=== PATIENT | female | born 1995 | race Caucasian/White ===

== ENCOUNTER 2023-03-12 11:15 | Emergency (ER) | payer OTHER ==
--- NOTE | 2023-03-12 11:20 | ERPHSYRPT ---
- History of Present Illness Time Seen by Provider: 03/12/23 11:20 Source: patient Exam Limitations: no limitations Physician History: This is a 27-year-old white female patient who took her dogs out side during the rain last evening she slipped and fell down the steps and landed on her right hip. This morning she is able to ambulate but has pain in the right hip and right groin area. She has no abdominal pain. She did not hit her head. She has no headache. She has no neck pain, she has no chest pain, she has no back pain. Patient is on Depo-Provera. Timing/Duration: yesterday Occured at: home Context: fall Quality: aching Hip Pain Location: hip (R), pelvis Severity of Pain-Max: mild (Moderate) Severity of Pain-Current: mild (To moderate) Modifying Factors: Improves With: movement Symptoms prior to fall: none Associated Symptoms: denies symptoms Allergies/Adverse Reactions: No Known Drug Allergies Allergy (Verified 03/12/23 11:29) Home Medications: ALPRAZolam [Alprazolam] 0.5 mg PO BID 03/12/23 [History] Fexofenadine HCl [Lina Allergy] 180 mg PO DAILY 03/12/23 [History] Medroxyprogesterone Acetate 1 ml IM UD 03/12/23 [History] Trazodone HCl 300 mg PO HS 03/12/23 [History] Vilazodone HCl 40 mg PO DAILY 03/12/23 [History] Hx Tetanus, Diphtheria Vaccination/Date Given: No Hx Influenza Vaccination/Date Given: No Hx Pneumococcal Vaccination/Date Given: No Travel Risk - International Travel Have you traveled outside of the country in past 3 weeks: No - Coronavirus Screening Are you exhibiting any of the following symptoms?: No Close contact with a COVID-19 positive Pt in past 14-21 Days: No - Review of Systems Constitutional: No Symptoms Eyes: No Symptoms Ears, Nose, & Throat: No Symptoms Respiratory: No Symptoms Cardiac: No Symptoms Abdominal/Gastrointestinal: No Symptoms Genitourinary Symptoms: No Symptoms Musculoskeletal: Fall, Injury Skin: No Symptoms Neurological: No Symptoms Psychological: No Symptoms Endocrine: No Symptoms Hematologic/Lymphatic: No Symptoms Immunological/Allergic: No Symptoms All Other Systems: Reviewed and Negative - Past Medical History Pertinent Past Medical History: Yes Neurological History: No Pertinent History ENT History: No Pertinent History Cardiac History: No Pertinent History Respiratory History: No Pertinent History Endocrine Medical History: No Pertinent History Musculoskeletal History: No Pertinent History GI Medical History: No Pertinent History History: No Pertinent History Psycho-Social History: No Pertinent History Female Reproductive Disorders: Endometriosis - Past Surgical History Past Surgical History: Yes Neuro Surgical History: No Pertinent History Cardiac: No Pertinent History Respiratory: No Pertinent History Gastrointestinal: No Pertinent History Genitourinary: No Pertinent History Musculoskeletal: No Pertinent History Female Surgical History: No Pertinent History Other Surgical History: tumor removed from overy - Social History Smoking Status: Never smoker Exposure to second hand smoke: No Drug Use: none Patient Lives Alone: No - Nursing Vital Signs Nursing Vital Signs: Initial Vital Signs Temperature 98.0 F 03/12/23 11:21 Pulse Rate 82 03/12/23 11:21 Blood Pressure 133/76 03/12/23 11:21 O2 Sat by Pulse Oximetry 99 03/12/23 11:21 Pain Scale Pain Intensity 9 - Physical Exam General Appearance: no apparent distress, alert, anxiety Eye Exam: PERRL/EOMI, eyes nml inspection Ears, Nose, Throat Exam: normal ENT inspection, moist mucous membranes Neck Exam: normal inspection, non-tender, supple, full range of motion Respiratory Exam: airway intact, No chest tenderness, No respiratory distress Gastrointestinal Exam: No tenderness Pelvic Exam: not done Rectal Exam: not done Back Exam: normal inspection, normal range of motion, No CVA tenderness, No vertebral tenderness Extremity Exam: normal inspection, normal range of motion, pelvis stable Neurologic Exam: alert, oriented x 3, cooperative, dog boarder II-XII nml as tested, normal mood/affect, nml cerebellar function, nml station & gait, sensation nml Skin Exam: normal color, warm, dry Lymphatic Exam: No adenopathy SpO2 Interpretation: normal O2 Delivery: Room Air - Course Nursing assessment & vital signs reviewed: Yes Ordered Tests: Active Orders 24 hr Category Date Time Status HIP UNI (2V) INCL PEL IF DONE Stat Exams 03/12/23 11:35 Completed - Progress Progress: unchanged Progress Note: 03/12/23 12:48 AP pelvis and right hip x-ray shows no acute fracture or dislocation. This x- ray was interpreted by the radiologist and the impression was reviewed by me. This patient medical issue is 1 of low complexity. The level of complexity and the workup performed is based on review of the patient's past medical history, review of the patient's medication list, review of the patient's drug allergy list, history present illness and physical finds on examination. This patient is undergoing AP pelvis and right hip x-ray. I reviewed the results of this radiographic study. Patient has no acute, emergent medical issue. We will discharge patient home. Medical Desision Making - Diagnostic Testing Diagnostic test were ordered, analyzed, and reviewed by me: Yes Radiological Interpretation: Reviewed by me, Teleradiologist Report - Risk of complications Minimal Risk: Minimal risk of morbidity - Departure Departure Disposition: Home Clinical Impression: Hip pain Condition: Stable Critical Care Time: No Referrals: LAURA CASTELLANOS NP [Primary Care Provider] - Follow up/PCP as directed Additional Instructions: Ice pack to tender areas 3 times a day for the next 48 hours. May use Tylenol and ibuprofen for pain control. If pain persist beyond 48 hours, may follow-up in the [facility] orthopedic clinic Thursday through Thursday 8 AM to 10 AM. It is a walk-in clinic and you do not need to have an appointment.
[2023-03-12 11:33] VITALS: PULSE 82; TEMP 98
--- NOTE | 2023-03-12 12:29 | XRAY ---
Indication: Right hip pain following fall. Comparison: None AP pelvis and 2 view right hip demonstrates normal bones, articulation, and soft tissues.
[2023-03-12 12:55] VITALS: BP 117/61; O2SAT 97
== END 2023-03-12 12:58 | disposition home or self-care (01) ==
LOC: ED 11:15
DX: M25.551 Pain in right hip (principal); W10.9XXA Fall (on) (from) unspecified stairs and steps, initial encounter; R10.2 Pelvic and perineal pain; Z79.899 Other long term (current) drug therapy
CPT/HCPCS: 73502; 99282

== ENCOUNTER 2023-09-11 21:45 | Emergency (ER) | payer OTHER ==
--- NOTE | 2023-09-11 21:47 | ERPHSYRPT ---
- History of Present Illness Time Seen by Provider: 09/11/23 21:47 Source: patient Exam Limitations: no limitations Physician History: This is a 27-year-old white female patient who has no known drug allergies and has a history of endometriosis and anxiety disorder presents with left upper jaw pain with chewing. She feels as though she has a dental infection. Patient has had a root canal performed in the past but this is the more posterior tooth to the 1 that had the root canal. She has appointment to see her dentist on 09/15/2023. Timing/Duration: gradual onset, days (2) Severity: mild (Moderate) ENT Location: dental (Upper molar dental pain) Prearrival Treatment: no prearrival treatment Modifying Factors: Improves With: other (Worsens with chewing) Associated Symptoms: tooth pain Allergies/Adverse Reactions: No Known Drug Allergies Allergy (Verified 09/11/23 21:48) Home Medications: ALPRAZolam [Alprazolam] 0.5 mg PO BID 03/12/23 [History] Medroxyprogesterone Acetate 1 ml IM UD 03/12/23 [History] Desvenlafaxine Succinate [Desvenlafaxine Succinate ER] 50 mg PO DAILY 09/11/23 [History] Quetiapine Fumarate 100 mg [Seroquel 100 MG] 100 mg PO DAILY 09/11/23 [History] Hx Tetanus, Diphtheria Vaccination/Date Given: No Hx Influenza Vaccination/Date Given: No Hx Pneumococcal Vaccination/Date Given: No Travel Risk - International Travel Have you traveled outside of the country in past 3 weeks: No - Coronavirus Screening Are you exhibiting any of the following symptoms?: No Close contact with a COVID-19 positive Pt in past 14-21 Days: No - Vaccine Status Have you recieved a Covid-19 vaccination: Yes Medical Driver: Moderna - Vaccination Dates Date of 2cond Vaccination (if applicable): 2020 - Review of Systems Constitutional: No Symptoms Eyes: No Symptoms Ears, Nose, & Throat: Other (Upper molar dental pain) Respiratory: No Symptoms Cardiac: No Symptoms Abdominal/Gastrointestinal: No Symptoms Genitourinary Symptoms: No Symptoms Musculoskeletal: No Symptoms Skin: No Symptoms Neurological: No Symptoms Psychological: No Symptoms Endocrine: No Symptoms Hematologic/Lymphatic: No Symptoms Immunological/Allergic: No Symptoms All Other Systems: Reviewed and Negative - Past Medical History Pertinent Past Medical History: Yes Neurological History: Migraines, Other ENT History: No Pertinent History Cardiac History: No Pertinent History Respiratory History: No Pertinent History Endocrine Medical History: No Pertinent History Musculoskeletal History: Other GI Medical History: No Pertinent History History: No Pertinent History Psycho-Social History: No Pertinent History Female Reproductive Disorders: Endometriosis Other Medical History: DEPRESSION ANXIETY AND PTSD. SCOPE - 2010 FOR ENDOMETRIOSIS;. MULIPLTE VAGINAL US - Past Surgical History Past Surgical History: Yes Neuro Surgical History: No Pertinent History Cardiac: No Pertinent History Respiratory: No Pertinent History Gastrointestinal: No Pertinent History Genitourinary: No Pertinent History Musculoskeletal: No Pertinent History Female Surgical History: No Pertinent History Other Surgical History: tumor removed from overy - Social History Smoking Status: Never smoker Exposure to second hand smoke: No Drug Use: none Patient Lives Alone: No - Nursing Vital Signs Nursing Vital Signs: Initial Vital Signs Temperature 97.4 F 09/11/23 21:52 Pulse Rate 87 09/11/23 21:52 Respiratory Rate 14 09/11/23 21:52 Blood Pressure 144/89 09/11/23 21:52 O2 Sat by Pulse Oximetry 99 09/11/23 21:52 Pain Scale Pain Intensity 10 - Physical Exam General Appearance: no apparent distress, alert, anxiety Eye Exam: bilateral eye: normal inspection, PERRL, EOMI Ear Exam: bilateral ear: auricle normal Nasal Exam: normal inspection Throat Exam: normal, pharynx normal, dental tenderness (Left upper dental pain #16 molar), moist mucus membranes (No abscess present) Neck Exam: normal inspection, non-tender, supple, full range of motion, trachea midline Cardiovascular/Respiratory Exam: chest non-tender, no respiratory distress Abdominal Exam: non-tender Neurologic Exam: alert, oriented x 3, cooperative, 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 The level of complexity in the workup performed is based on review of the patient's past medical history, review the patient's medication list, review of patient drug allergy list, history of present illness and physical findings on examination. No radiographic or laboratory studies are necessary in this patient. The patient drove herself into the hospital urgency department. We will provide her with amoxicillin 500 mg 1 capsule now and two take-home Percocet 5/325 tablets. Counseled pt/family regarding: diagnosis, need for follow-up Medical Desision Making - Diagnostic Testing Diagnostic test were ordered, analyzed, and reviewed by me: No - Risk of complications The pt has a mod risk of morbidity or mortality based on: Need for prescription drug management - Departure Departure Disposition: Home Clinical Impression: Dental infection, Pain, dental Condition: Stable Critical Care Time: No Referrals: LAURA CASTELLANOS NP [Primary Care Provider] - Follow up/PCP as directed Additional Instructions: Take your antibiotics as prescribed. Take your Percocet medication as prescribed. Take ibuprofen 600 mg orally with food 3 times a day for the next 5 days. After you complete your Percocet medication, you can add 650 mg orally 4 times a day of Tylenol. Keep your dental appointment on 09/15/2023 for definitive care Prescriptions: Amoxicillin 500 mg Cap [Amoxil 500 mg] 500 mg PO TID #30 cap
[2023-09-11 22:03] VITALS: TEMP 97.4
[2023-09-11] MEDS ORDERED: PERCOCET TABLET 5/325MG ONE (22:08)
[2023-09-11] MEDS ORDERED: AMOXIL 500 MG ONE (22:08)
[2023-09-11] MEDS: AMOXIL 500 MG PO ONE (22:12)
[2023-09-11] MEDS: PERCOCET TABLET 5/325MG PO STA (22:13)
[2023-09-11 22:21] VITALS: BP 133/89
[2023-09-11 22:22] VITALS: PULSE 92; RESP 16; O2SAT 98
== END 2023-09-11 22:22 | disposition home or self-care (01) ==
LOC: ED 21:45
DX: K04.7 Periapical abscess without sinus (principal); K08.89 Other specified disorders of teeth and supporting structures; Z79.899 Other long term (current) drug therapy
CPT/HCPCS: 99282; A9270-GY

== ENCOUNTER 2023-09-12 17:23 | Emergency (ER) | payer OTHER ==
[2023-09-12] MEDS ORDERED: BENADRYL 12.5 MG/5 ML PO ONE (17:24)
[2023-09-12 17:42] VITALS: RESP 18; TEMP 97
[2023-09-12] MEDS: MORPHINE SULFATE 4 MG INJ IM ONE (17:54)
--- NOTE | 2023-09-12 17:59 | ERPHSYRPT ---
- History of Present Illness Time Seen by Provider: 09/12/23 17:26 Source: patient Exam Limitations: no limitations Patient Subjective Stated Complaint: Left sided jaw/mouth pain Triage Nursing Assessment: Patient ambulated back to ED and transferred self to bed. Patient A+O X3. Patient's skin pink, warm and dry. Patient complains of left sided jaw/mouth pain 8/10 for 3 days. Patient was seen in ED last night and prescribed atb. Patient states today the left side of her jaw is going numb and going down into left side of neck. Left side of face/jaw noted to be swollen. Physician History: 27 years old female was evaluated last night for dental pain, was given couple of Percocet and amoxicillin presented in the ER with complains of increasing pain left lower jaw despite having amoxicillin and couple Percocet along with ibuprofen. Patient also reports some swelling of left lower jaw and feeling of numbness in the left anterior jaw area. No facial droop or difficulty closing left eye or numbness in the cheek area. Patient also reports pain and feeling of tightness in the left upper neck but no difficulty movements of neck or difficulty speech. No difficulty swallowing or breathing. No fever or chills r eported. Patient reports currently 9/10 intensity pain in the left lower jaw. Allergies/Adverse Reactions: No Known Drug Allergies Allergy (Verified 09/12/23 17:35) Home Medications: ALPRAZolam [Alprazolam] 0.5 mg PO BID 03/12/23 [History] Medroxyprogesterone Acetate 1 ml IM UD 03/12/23 [History] Desvenlafaxine Succinate [Desvenlafaxine Succinate ER] 50 mg PO DAILY 09/11/23 [History] Quetiapine Fumarate 100 mg [Seroquel 100 MG] 100 mg PO DAILY 09/11/23 [History] Hx Tetanus, Diphtheria Vaccination/Date Given: No Hx Influenza Vaccination/Date Given: No Hx Pneumococcal Vaccination/Date Given: No Immunizations Up to Date: Yes Travel Risk - International Travel Have you traveled outside of the country in past 3 weeks: No - Coronavirus Screening Are you exhibiting any of the following symptoms?: No Close contact with a COVID-19 positive Pt in past 14-21 Days: No - Vaccine Status Have you recieved a Covid-19 vaccination: Yes Java Groovy Developer: Moderna - Vaccination Dates Date of 2cond Vaccination (if applicable): 2020 - Review of Systems Constitutional: No Symptoms Eyes: No Symptoms Ears, Nose, & Throat: Mouth Swelling, Loose Teeth Respiratory: No Symptoms Cardiac: No Symptoms Abdominal/Gastrointestinal: No Symptoms Genitourinary Symptoms: No Symptoms Musculoskeletal: No Symptoms Skin: No Symptoms Neurological: No Symptoms Endocrine: No Symptoms Hematologic/Lymphatic: No Symptoms Immunological/Allergic: No Symptoms - Past Medical History Pertinent Past Medical History: Yes Neurological History: Migraines, Other ENT History: No Pertinent History Cardiac History: No Pertinent History Respiratory History: No Pertinent History Endocrine Medical History: No Pertinent History Musculoskeletal History: Other GI Medical History: No Pertinent History History: No Pertinent History Psycho-Social History: No Pertinent History Female Reproductive Disorders: Endometriosis Other Medical History: DEPRESSION ANXIETY AND PTSD. SCOPE - 2010 FOR ENDOMETRIOSIS;. MULIPLTE VAGINAL US - Past Surgical History Past Surgical History: Yes Neuro Surgical History: No Pertinent History Cardiac: No Pertinent History Respiratory: No Pertinent History Gastrointestinal: No Pertinent History Genitourinary: No Pertinent History Musculoskeletal: No Pertinent History Female Surgical History: No Pertinent History Other Surgical History: tumor removed from overy - Social History Smoking Status: Never smoker Exposure to second hand smoke: No Drug Use: none Patient Lives Alone: No - Female History Hx Now: No - Nursing Vital Signs Nursing Vital Signs: Initial Vital Signs Temperature 97.0 F 09/12/23 17:36 Pulse Rate 75 09/12/23 17:36 Respiratory Rate 18 09/12/23 17:36 Blood Pressure 161/92 09/12/23 17:36 O2 Sat by Pulse Oximetry 99 09/12/23 17:36 Pain Scale Pain Intensity 4 - Physical Exam General Appearance: no apparent distress, alert Eye Exam: bilateral eye: normal inspection, PERRL, EOMI Ear Exam: bilateral ear: auricle normal, canal normal, TM normal Nasal Exam: normal inspection Throat Exam: normal, pharynx normal, dental tenderness (Left lower premolar and molar with minimal left lower gingival swelling and tenderness.) Neck Exam: normal inspection, non-tender, supple, full range of motion Cardiovascular/Respiratory Exam: normal breath sounds, regular rate/rhythm Neurologic Exam: alert, oriented x 3, cooperative, operations support analyst II-XII nml as tested, sensation nml, No motor deficits Skin Exam: normal color SpO2 Interpretation: normal SpO2: 99 O2 Delivery: Room Air Ordered Tests: Medication Summary Generic Name Dose Route Start Last Admin Trade Name Norma PRN Reason Stop Dose Admin Lidocaine HCl 10 ml 09/12/23 18:44 09/12/23 18:47 Lidocaine Hcl Viscous 1 Ml MM 10/12/23 18:43 10 ml PRN PRN Administration MILD PAIN Discontinued Medications Generic Name Dose Route Start Last Admin Trade Name Norma PRN Reason Stop Dose Admin Hydrocodone Bitart/Acetaminophen 2 tab 09/12/23 19:30 Hydrocodone/Apap 5/325 1 Tab Tablet PO 09/12/23 19:31 SENT HOME W/ PATIENT ONE Al Hydrox/Mg Hydrox/Simethicone Confirm 09/12/23 18:28 Mag Hydrox/Al Hydrox/Simeth 30 Ml Udcup Administered 09/12/23 18:29 Dose 30 ml .ROUTE .STK-MED ONE Al Hydrox/Mg Hydrox/Simethicone 20 ml 09/12/23 18:44 09/12/23 18:47 Mag Hydrox/Al Hydrox/Simeth 30 Ml Udcup PO 09/12/23 18:45 20 ml STAT ONE Administration Diphenhydramine HCl Confirm 09/12/23 18:27 Diphenhydramine Hcl 12.5 Mg/5 Ml Oral Solution Administered 09/12/23 18:28 Dose 7.5 mg .ROUTE .STK-MED ONE Diphenhydramine HCl 25 mg 09/12/23 18:44 09/12/23 18:46 Diphenhydramine Hcl 12.5 Mg/5 Ml Oral Solution PO 09/12/23 18:45 25 mg STAT ONE Administration Ketorolac Tromethamine 30 mg 09/12/23 17:55 09/12/23 18:34 Ketorolac Tromethamine 30 Mg/Ml Inj IM 09/12/23 17:56 30 mg STAT ONE Administration Ketorolac Tromethamine Confirm 09/12/23 18:28 Ketorolac Tromethamine 30 Mg/Ml Inj Administered 09/12/23 18:29 Dose 30 mg .ROUTE .STK-MED ONE Lidocaine HCl Confirm 09/12/23 18:28 Lidocaine Hcl 2% Viscous 15 Ml Udcup Administered 09/12/23 18:29 Dose 15 ml .ROUTE .STK-MED ONE Morphine Sulfate 4 mg 09/12/23 17:47 09/12/23 17:54 Morphine Sulfate 4 Mg/Ml Injection IM 09/12/23 17:48 Not Given STAT ONE - Progress Progress: improved, pain not gone completely Progress Note: 09/12/23 19:28 27 years old is evaluated for dental pain and left lower jaw swelling. Patient is given Toradol for and dental ball for symptomatic relief, on reevaluation she is feeling better. No obvious dental abscess. Recommended continue with amoxicillin. Outpatient follow-up with dentist as scheduled. Given 2 pills of Flynn to go home. Discussed signs symptoms of worsening needing return to ER which she seems understanding. Stable for discharge . Counseled pt/family regarding: diagnosis, need for follow-up Medical Desision Making - Risk of complications The pt has a mod risk of morbidity or mortality based on: Need for prescription drug management - Departure Departure Disposition: Home Clinical Impression: Pain, dental Condition: Stable Critical Care Time: No Referrals: LAURA CASTELLANOS, BUILDING OPERATOR [Primary Care Provider] - Follow up with PCP 2 days Instructions: Dental Pain (DC) Additional Instructions: Use dental balls. Tylenol/ibuprofen as needed for pain. Follow-up with your dentist for reevaluation as scheduled early next week. Return to ER for intractable pain, swelling, difficulty movements of jaw, fever chills etc.
[2023-09-12] MEDS ORDERED: BENADRYL 12.5 MG/5 ML ONE (18:27)
[2023-09-12] MEDS ORDERED: TORAdol 30 mg Injection ONE (18:28)
[2023-09-12] MEDS ORDERED: MAALOX ES 30 ML UNIT DOSE ONE (18:28)
[2023-09-12] MEDS ORDERED: XYLOCAINE VISCOUS 2% 15 ML CUP ONE (18:28)
[2023-09-12] MEDS: TORAdol 30 mg Injection IM ONE (18:34)
[2023-09-12] MEDS: BENADRYL 12.5 MG/5 ML PO ONE (18:46)
[2023-09-12] MEDS: XYLOCAINE HCl Viscous MM PRN (18:47)
[2023-09-12] MEDS: MAALOX ES 30 ML UNIT DOSE PO ONE (18:47)
[2023-09-12 19:01] VITALS: BP 155/96; PULSE 65
[2023-09-12 19:31] VITALS: O2SAT 99
[2023-09-12] MEDS ORDERED: NORCO 5/325 MG ONE (19:32)
[2023-09-12] MEDS: NORCO 5/325 MG PO ONE (19:33)
== END 2023-09-12 19:41 | disposition home or self-care (01) ==
LOC: ED 17:23
DX: K08.89 Other specified disorders of teeth and supporting structures (principal); R20.2 Paresthesia of skin; Z79.899 Other long term (current) drug therapy
CPT/HCPCS: 96372; 99283; J1885; A9270-GY

== ENCOUNTER 2023-10-15 08:15 | Day surgery (SDC) | payer OTHER ==
[2023-10-15] MEDS ORDERED: Lactated Ringers 1,000 ML IV ONE (08:30)
[2023-10-15 08:32] LABS: HCG URINE TEST NEGATIVE (NEGATIVE)
[2023-10-15 08:41] VITALS: O2SAT 98
[2023-10-15] MEDS: Lactated Ringers 1,000 ML IV SCH (08:43)
[2023-10-15] MEDS ORDERED: Versed 2 MG/2 ML Injection ONE (11:05)
[2023-10-15] MEDS ORDERED: DIPRIVAN 200 MG/20 ML IV ONE ×3 (11:05→11:31)
[2023-10-15] MEDS ORDERED: Xylocaine-Mpf 2% 5 Ml Vial ONE (11:05)
[2023-10-15 12:13] VITALS: BP 114/73; PULSE 62; RESP 18; TEMP 97.3
--- NOTE | 2023-10-15 14:45 | OP ---
SURGERY DATE/TIME: 10/15/2023 1112 PREOPERATIVE DIAGNOSES: 1) Dysphagia. 2) Bright red blood per rectum. POSTOPERATIVE DIAGNOSES: 1) Dysphagia. 2) Bright red blood per rectum. 3) Normal appearing EGD and colonoscopy. PROCEDURES: 1) EGD with biopsy. 2) Colonoscopy with biopsy. SURGEON: Stephen Jain M.D. ANESTHESIA: IV anesthesia. CONDITION: Patient condition stable. COMPLICATIONS: None. SPECIMENS: As below. HISTORY: The patient is a 28-year-old female with complaints of cervical-type dysphagia. She also complains of bright red blood per rectum. Discussion with the patient endoscopy. Risk of infection, bleeding, perforation and she would like to proceed. FINDINGS: Normal appearing EGD and colonoscopy all the way to the terminal ileum. Biopsies taken everywhere. DESCRIPTION OF PROCEDURE: The patient was brought to the endoscopy suite. Routinely positioned and prepared. Time out was performed. The gastroscope is inserted through the mouth and advanced to the third portion of the duodenum. The duodenum is normal in appearance. Biopsies are taken to rule out celiac. The stomach is normal in appearance. Biopsies taken of the antrum. Retroflexion is normal. The esophagus is normal in appearance. Biopsies are taken of the esophagus. The stomach is then suctioned out. Scope is withdrawn. The cricopharyngeal esophagus is totally normal in appearance. There is no evident stricture. The patient was then prepared for colonoscopy. External examination is normal. There is no external hemorrhoidal disease. No fissure. The digital rectal exam was normal. The colonoscope is inserted and advanced to the terminal ileum. The preparation of the [place]ick good preparation. The terminal ileum is normal in appearance. Biopsies are taken in the terminal ileum. The colon is normal in appearance. Images of the appendiceal orifice and ileocecal valve of colon are taken. The colon is normal in appearance. Random colon biopsies are taken on withdrawal. Withdrawal time is greater than 6 minutes. Retroflexion in the rectum is normal. There is no evidence of internal hemorrhoid. The patient tolerated the procedure well and she was taken to recovery in stable condition. RECOMMENDATIONS: I recommend follow up in the office within one month to review biopsy results. At this point with the dysphagia, could consider getting an upper GI study and potentially a motility work up. There is no source for her bleeding. Could consider CT scan of the abdomen if she has not had that done already.
== END 2023-10-15 12:31 | disposition home or self-care (01) ==
LOC: SDC 08:15
PROVIDERS: ATTEND Surgery
DX: R13.10 Dysphagia, unspecified (principal); K62.5 Hemorrhage of anus and rectum
CPT/HCPCS: 81025; J2250; J2704

== ENCOUNTER 2024-01-08 22:02 | Emergency (ER) | payer OTHER ==
[2024-01-08 22:08] VITALS: RESP 16; TEMP 97
--- NOTE | 2024-01-08 22:10 | ERPHSYRPT ---
- History of Present Illness Time Seen by Provider: 01/08/24 22:10 Source: patient Exam Limitations: no limitations Patient Subjective Stated Complaint: Left foot injury Triage Nursing Assessment: Physician History: This is a 28-year-old white female patient who burned the skin of the dorsal medial left foot while using a lawnmower 3 days ago. She is kept the area clean first using Betadine and then followed up with scrubbing the area with antibacterial soap. The area is mixing machine tender and there is redness extending outward from the site. Patient has not had any fevers. Method of Injury: burn Occurred: days ago (3) Quality: burning Severity of Pain-Max: mild Severity of Pain-Current: mild Lower Extremities Pain: foot: left Modifying Factors: Improves With: nothing Associated Symptoms: none Allergies/Adverse Reactions: adhesive tape Adverse Reaction (Unknown, Verified 10/15/23 08:31) Itching itching, red Home Medications: ALPRAZolam [Alprazolam] 0.5 mg PO BID 03/12/23 [History] Quetiapine Fumarate 100 mg [Seroquel 100 MG] 200 mg PO DAILY 09/11/23 [History] Desvenlafaxine Succinate [Pristiq] 50 mg PO UD 10/12/23 [History] Multivitamin [Multi-Vitamin Daily] 1 tab PO DAILY 10/12/23 [History] Hx Tetanus, Diphtheria Vaccination/Date Given: Yes Hx Influenza Vaccination/Date Given: No Hx Pneumococcal Vaccination/Date Given: No Travel Risk - International Travel Have you traveled outside of the country in past 3 weeks: No - Emerging Infectious Disease Are you exhibiting symptoms associated with any current EIDs: No - Review of Systems Constitutional: No Symptoms Eyes: No Symptoms Ears, Nose, & Throat: No Symptoms Respiratory: No Symptoms Cardiac: No Symptoms Abdominal/Gastrointestinal: No Symptoms Genitourinary Symptoms: No Symptoms Musculoskeletal: No Symptoms Skin: Cellulitis (Mild cellulitis present around the burn site of her left foot), Other (Tenderness burn site left foot) Neurological: No Symptoms Psychological: No Symptoms Endocrine: No Symptoms Hematologic/Lymphatic: No Symptoms Immunological/Allergic: No Symptoms All Other Systems: Reviewed and Negative - Past Medical History Pertinent Past Medical History: Yes Neurological History: Migraines, Other ENT History: No Pertinent History Cardiac History: No Pertinent History Respiratory History: No Pertinent History Endocrine Medical History: No Pertinent History Musculoskeletal History: Other GI Medical History: GERD History: No Pertinent History Psycho-Social History: No Pertinent History Female Reproductive Disorders: Endometriosis Other Medical History: DEPRESSION ANXIETY AND PTSD. SCOPE - 2011 FOR ENDOMETRIOSIS;. MULIPLTE VAGINAL US - Past Surgical History Past Surgical History: Yes Neuro Surgical History: No Pertinent History Cardiac: No Pertinent History Respiratory: No Pertinent History Gastrointestinal: No Pertinent History Genitourinary: No Pertinent History Musculoskeletal: No Pertinent History Female Surgical History: No Pertinent History Other Surgical History: tumor removed from ovary. tooth abcess - Female History Hx Now: No - Social History Smoking Status: Never smoker Exposure to second hand smoke: Yes Drug Use: none Patient Lives Alone: No - Social Determinants of Health Will the patient participate in the screening: Yes Do you worry about a steady place to live?: No Do you have any problems with any of the following?: No known problems In the past 12 months,have you had to go without utilities?: No Transportation Issues: No Has anyone in your support network made you feel unsafe?: No Have you or anyone in your house had to go without enough: No - Nursing Vital Signs Nursing Vital Signs: Initial Vital Signs Blood Pressure 139/82 01/08/24 22:06 O2 Sat by Pulse Oximetry 99 01/08/24 22:06 Pain Scale Pain Intensity 8 - Physical Exam General Appearance: no apparent distress, alert, anxiety Eyes, Ears, Nose, Throat Exam: normal ENT inspection, moist mucous membranes Neck Exam: normal inspection, non-tender, supple, full range of motion Cardiovascular/Respiratory Exam: chest non-tender, no respiratory distress Gastrointestinal/Abdominal Exam: non-tender Back Exam: normal inspection, normal range of motion, No CVA tenderness, No vertebral tenderness Hips Exam: bilateral: non-tender, normal inspection, normal range of motion, no evidence of injury Legs Exam: bilateral leg: non-tender, normal inspection, normal range of motion, no evidence of injury Knees Exam: bilateral knee: non-tender, normal inspection, normal range of motion, no evidence of injury Ankle Exam: bilateral ankle: non-tender, normal inspection, normal range of motion, no evidence of injury Foot Exam: right foot: non-tender, normal inspection, no evidence of injury, left foot: soft tissue tenderness (The area of the burn of the left foot), other (Mild localized cellulitis around the area of the left foot burn. No proximal streaking), bilateral foot: normal range of motion Neuro/Tendon Exam: normal sensation, normal motor functions, normal tendon functions, responds to pain, no evidence tendon injury Mental Status Exam: alert, oriented x 3, cooperative Skin Exam: other (See above description) SpO2 Interpretation: normal SpO2: 99 O2 Delivery: Room Air - Course Nursing assessment & vital signs reviewed: Yes Ordered Tests: Medication Summary Discontinued Medications Generic Name Dose Route Start Last Admin Trade Name Norma PRN Reason Stop Dose Admin Hydrocodone Bitart/Acetaminophen 2 tab 01/08/24 23:13 Hydrocodone/Apap 5/325 1 Tab Tablet PO 01/08/24 23:14 SENT HOME W/ PATIENT ONE Cephalexin HCl 500 mg 01/08/24 23:14 Cephalexin Mh 250 Mg/5 Ml Bottle PO 01/08/24 23:15 STAT ONE - Progress Progress: unchanged Progress Note: 01/08/24 23:18 My medical decision making and the assignment of low complexity to this patient's medical issue is based on review of the patient's past medical history, review the patient drug allergy list, review of the patient's medication list, history presence of physical findings on examination. This patient's workup does not require laboratory radiographic studies. Differential diagnosis includes but not limited to cellulitis, open wound of skin changes Counseled pt/family regarding: diagnosis, need for follow-up Medical Desision Making - Diagnostic Testing Diagnostic test were ordered, analyzed, and reviewed by me: No - Risk of complications The pt has a mod risk of morbidity or mortality based on: Need for prescription drug management - Departure Departure Disposition: Home Clinical Impression: Cellulitis Condition: Stable Critical Care Time: No Referrals: LAURA CASTELLANOS NP [Primary Care Provider] - Follow up/PCP as directed Additional Instructions: Take the antibiotics as prescribed. Scrub the site as discussed at least daily with antibacterial soap. Rinse and blot dry use a director hair. May apply thin layer of antibiotic ointment of choice and cover with a nonstick gauze. Use Tylenol and ibuprofen for pain control. Follow-up with your primary care provider by phone on 01/11/2024 to make arranges for follow-up appointment for reevaluation in the next 3 to 5 days Prescriptions: Cephalexin Mh 500 mg [Keflex 500 mg] 500 mg PO TID #21 cap
[2024-01-08] MEDS ORDERED: KEFLEX 500 MG ONE (23:30)
[2024-01-08] MEDS ORDERED: NORCO 5/325 MG ONE (23:30)
[2024-01-08] MEDS: KEFLEX 500 MG PO ONE (23:31)
[2024-01-08] MEDS: NORCO 5/325 MG PO ONE (23:33)
[2024-01-08 23:38] VITALS: BP 109/78; PULSE 64; O2SAT 100
[2024-01-08] MEDS: KEFLEX 250 MG/5 ML SUSP PO ONE (23:38)
== END 2024-01-08 23:45 | disposition home or self-care (01) ==
LOC: ED 22:02
DX: L03.116 Cellulitis of left lower limb (principal); Z79.899 Other long term (current) drug therapy
CPT/HCPCS: 99282; A9270-GY

== ENCOUNTER 2024-09-22 17:24 | Emergency (ER) | payer OTHER ==
[2024-09-22 17:38] VITALS: TEMP 97.1
--- NOTE | 2024-09-22 18:16 | ERPHSYRPT ---
- History of Present Illness Time Seen by Provider: 09/22/24 17:49 Source: patient Exam Limitations: no limitations Patient Subjective Stated Complaint: Pt states "I have migraines and this one has lasted since about 5 am and I cannot get rid of it. Sometimes I have to get a shot to get rid of them." Triage Nursing Assessment: PT presented alert and oriented X 3, skin pwd. Pt ambulates with an upright steady gait, able to speak in clear full sentences. Pt resting comfortably on the bed. Physician History: 29 years old female with a history of anxiety/depression presented in the ER with complaints of headache. Patient has history of migraines poorly controlled reports started at 5 AM mostly in the frontal and right temporal area, aggravated with bright light, associated nausea but no vomiting. Denies any fever or chills. No numbness tingling or focal weakness. Denies any visual changes. No difficulty speech or difficulty movements of neck. No known sick contact. Reports having similar symptoms multiple times in the past. Allergies/Adverse Reactions: adhesive tape Adverse Reaction (Unknown, Verified 10/15/23 08:31) Itching itching, red silicone Adverse Reaction (Unknown, Verified 09/22/24 17:38) Home Medications: Quetiapine Fumarate 100 mg [Seroquel 100 MG] 200 mg PO DAILY 09/11/23 [History] Desvenlafaxine Succinate [Pristiq] 50 mg PO UD 10/12/23 [History] Multivitamin [Multi-Vitamin Daily] 1 tab PO DAILY 10/12/23 [History] clonazePAM [Clonazepam] 0.5 mg PO TID 09/22/24 [History] Hx Tetanus, Diphtheria Vaccination/Date Given: Yes Hx Influenza Vaccination/Date Given: Yes Hx Pneumococcal Vaccination/Date Given: No Immunizations Up to Date: No Travel Risk - International Travel Have you traveled outside of the country in past 3 weeks: No - Emerging Infectious Disease Are you exhibiting symptoms associated with any current EIDs: No - Review of Systems Constitutional: No Symptoms Eyes: No Symptoms Ears, Nose, & Throat: No Symptoms Respiratory: No Symptoms Cardiac: No Symptoms Abdominal/Gastrointestinal: Nausea Genitourinary Symptoms: No Symptoms Musculoskeletal: No Symptoms Neurological: Headache Endocrine: No Symptoms - Past Medical History Pertinent Past Medical History: Yes Neurological History: Migraines, Other ENT History: No Pertinent History Cardiac History: No Pertinent History Respiratory History: No Pertinent History Endocrine Medical History: No Pertinent History Musculoskeletal History: Other GI Medical History: GERD History: No Pertinent History Psycho-Social History: No Pertinent History Female Reproductive Disorders: Endometriosis Other Medical History: DEPRESSION ANXIETY AND PTSD. SCOPE - 2011 FOR ENDOMETRIOSIS;. MULIPLTE VAGINAL US - Past Surgical History Past Surgical History: Yes Neuro Surgical History: No Pertinent History Cardiac: No Pertinent History Respiratory: No Pertinent History Gastrointestinal: No Pertinent History Genitourinary: No Pertinent History Musculoskeletal: No Pertinent History Female Surgical History: No Pertinent History Other Surgical History: tumor removed from ovary. tooth abcess - Female History Hx Last Menstrual Period: 09/22/2024 Hx Now: No - Social History Smoking Status: Never smoker Exposure to second hand smoke: Yes Drug Use: none - Social Determinants of Health Will the patient participate in the screening: Yes Do you worry about a steady place to live?: No Do you have any problems with any of the following?: No known problems In the past 12 months,have you had to go without utilities?: No Transportation Issues: No Has anyone in your support network made you feel unsafe?: No Have you or anyone in your house had to go w/o enough food: No - Nursing Vital Signs Nursing Vital Signs: Initial Vital Signs Temperature 97.1 F 09/22/24 17:33 Pulse Rate 80 09/22/24 17:33 Respiratory Rate 18 09/22/24 17:33 Blood Pressure 141/68 09/22/24 17:33 O2 Sat by Pulse Oximetry 99 09/22/24 17:33 Pain Scale Pain Intensity 7 - Physical Exam General Appearance: no apparent distress, alert Eye Exam: PERRL/EOMI Ears, Nose, Throat Exam: normal ENT inspection Neck Exam: normal inspection, non-tender, supple, full range of motion Respiratory Exam: normal breath sounds, lungs clear Cardiovascular Exam: regular rate/rhythm, normal heart sounds Gastrointestinal/Abdominal Exam: soft, normal bowel sounds, No tenderness Extremity Exam: normal inspection, normal range of motion Mental Status Exam: alert, 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 x 3, 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 Exam: normal hearing, normal speech, PERRL Coordination/Gait Exam: normal finger to nose, normal cerebellar function Motor/Sensory Exam: no motor deficit, no sensory deficit DTR Exam: bicep (R): 2+, bicep (L): 2+, knee (R): 2+, knee (L): 2+ Skin Exam: normal color SpO2 Interpretation: normal SpO2: 99 O2 Delivery: Room Air Ordered Tests: Active Orders 24 hr Category Date Time Status IV Insertion STAT Care 09/22/24 18:00 Active Medication Summary Discontinued Medications Generic Name Dose Route Start Last Admin Trade Name Norma PRN Reason Stop Dose Admin Acetaminophen 975 mg 09/22/24 18:00 09/22/24 18:26 Acetaminophen 325 Mg Tablet PO 09/22/24 18:01 975 mg STAT ONE Administration Acetaminophen Confirm 09/22/24 18:24 Acetaminophen 325 Mg Tablet Administered 09/22/24 18:25 Dose 975 mg .ROUTE .STK-MED ONE Diphenhydramine HCl 50 mg 09/22/24 18:00 09/22/24 18:26 Diphenhydramine Hcl 50 Mg/Ml Vial IV 09/22/24 18:01 50 mg STAT ONE Administration Diphenhydramine HCl Confirm 09/22/24 18:24 Diphenhydramine Hcl 50 Mg/Ml Vial Administered 09/22/24 18:25 Dose 50 mg .ROUTE .STK-MED ONE Sodium Chloride 1,000 mls @ 999 mls/hr 09/22/24 18:00 09/22/24 18:26 Sodium Chloride 0.9% 1000 Ml IV 09/22/24 19:00 999 mls/hr .Q1H1M STA Administration Sodium Chloride Confirm 09/22/24 18:24 Sodium Chloride 0.9% 1000 Ml Administered 09/22/24 18:25 Dose 1,000 mls @ ud .ROUTE .STK-MED ONE Ketorolac Tromethamine 30 mg 09/22/24 18:00 09/22/24 18:26 Ketorolac Tromethamine 30 Mg/Ml Inj IV 09/22/24 18:01 30 mg STAT ONE Administration Ketorolac Tromethamine Confirm 09/22/24 18:24 Ketorolac Tromethamine 30 Mg/Ml Inj Administered 09/22/24 18:25 Dose 30 mg .ROUTE .STK-MED ONE Ondansetron HCl 4 mg 09/22/24 18:01 09/22/24 18:26 Ondansetron Hcl 4 Mg/2 Ml Vial IV 09/22/24 18:02 4 mg STAT ONE Administration Ondansetron HCl Confirm 09/22/24 18:24 Ondansetron Hcl 4 Mg/2 Ml Vial Administered 09/22/24 18:25 Dose 4 mg .ROUTE .STK-MED ONE - Progress Progress: improved, re-examined Air Movement: good Progress Note: 09/22/24 19:26 29 years old with history of migraine is evaluated in the ER for headache since morning with nausea. Nonfocal neuroexam. Headache is similar to previous, does not think the worst headache of her life, Do not think needs imaging or any workup, given symptomatic treatment with migraine cocktail, Toradol/Benadryl/Zofran and Tylenol, on reevaluation she is feeling much improved. Recommended outpatient follow-up with primary care and need referral for neurology. Discussed signs symptoms of worsening needing return to ER which she seems understanding. Complexity of problems addressed: Moderate Complexity of data reviewed/analyzed: Limited Risk of complications/morbidity or mortality of patient management moderate Stable for discharge. Blood Culture(s) Obtained: No Antibiotics given: No Counseled pt/family regarding: diagnosis, need for follow-up Medical Desision Making - Risk of complications The pt has a mod risk of morbidity or mortality based on: Need for prescription drug management - Departure Departure Disposition: Home Clinical Impression: Migraine Qualifiers: Migraine type: unspecified Status migrainosus presence: without status migrainosus Intractability: not intractable Qualified Code(s): G43.909 - Migraine, unspecified, not intractable, without status migrainosus Condition: Stable Critical Care Time: No Referrals: LAURA CASTELLANOS NP [Primary Care Provider] - Follow up with PCP 1 day Instructions: Headache, Adult (DC) Additional Instructions: Take Tylenol/ibuprofen as needed. Follow-up with your primary care for reevaluation and may need referral for neurology for further evaluation and to be on prophylactic medications for recurrent migraines. Return to ER for intractable headache/vomiting/numbness tingling weakness, difficulty speech or visual changes etc.
[2024-09-22] MEDS ORDERED: Zofran 4 MG/2 ML VIAL ONE (18:24)
[2024-09-22] MEDS ORDERED: Sodium Chloride 0.9% 1000 ML 1,000 ML ONE (18:24)
[2024-09-22] MEDS ORDERED: TORAdol 30 mg Injection ONE (18:24)
[2024-09-22] MEDS ORDERED: TYLENOL 325 MG ONE (18:24)
[2024-09-22] MEDS ORDERED: BENADRYL 50 MG/ML ONE (18:24)
[2024-09-22] MEDS: TORAdol 30 mg Injection IV ONE (18:26)
[2024-09-22] MEDS: TYLENOL 325 MG PO ONE (18:26)
[2024-09-22] MEDS: BENADRYL 50 MG/ML IV ONE (18:26)
[2024-09-22] MEDS: Sodium Chloride 0.9% 1000 ML 1,000 ML IV STA (18:26)
[2024-09-22] MEDS: Zofran 4 MG/2 ML VIAL IV ONE (18:26)
[2024-09-22 19:15] VITALS: PULSE 70
[2024-09-22 19:46] VITALS: BP 125/67; RESP 16; O2SAT 100
== END 2024-09-22 19:46 | disposition home or self-care (01) ==
LOC: ED 17:24
DX: G43.909 Migraine, unspecified, not intractable, without status migrainosus (principal); Z79.899 Other long term (current) drug therapy
CPT/HCPCS: 96361; 96374; 96375; 99284; J1200; J1885; J2405; A9270-GY